=== PATIENT | female | born 1975 | race Caucasian/White ===

== ENCOUNTER 2016-08-31 18:03 | Emergency (ER) | payer OTHER ==
[~2016-08-31] VITALS: Ht 160 cm; Wt 46.9 kg
[~2016-08-31 18:03] MED LIST: ATENOLOL50 MG PO; BENTYL10 MG PO; CREON 241 CAPSULE PO; Colace PO; DEPAKOTE500 MG; DESYREL100 MG; DILANTIN100 MG PO; DILAUDID4 MG PO; DOCUSATE SODIU100 MG PO; Dilaudid PO; ELAVIL25 MG PO; FLOVENT 11120 INHALA IH; Feosol PO; GABAPENTIN300 MG PO; GABAPENTIN600 MG PO; Habitrol,Nicoderm CQ TD; IBUPROFEN IB100 MG PO; K-Dur PO; KEPPRA1000 MG PO; KEPPRA500 MG PO; KEPPRA750 MG PO; KLONOPIN1 MG PO; Keppra PO; KlonoPIN PO; Levaquin PO; MACRODANTIN100 MG PO; MORPHINE SULFAT15 M1 PO; MOTRIN IB200 MG; MOTRIN IB200 MG PO; NEURONTIN300 MG PO; NEURONTIN800 MG PO; NICOTINE PATCH1 EAC2 TD; NOHOMEMEDS; Neurontin PO; Nitrostat,NitroQuick SL; OMEPRAZOLE40 M1 PO; OXYCODONE HCL10 MG PO; OXYCODONE HCL5 MG PO; OxyCONTIN PO; PERCOCET 5/31 TABLET PO; PHENERGAN25 MG PO; PRILOSEC20 MG; PRILOSEC40 MG PO; PROMETHAZINE HC25 M1 PO; Protonix PO; Proventil,Ventolin H IH; SENNA8.6 MG PO; SOMA250 MG PO; SOMA350 M1 PO; SOMA350 MG PO; Soma PO; TENORMIN50 MG PO; Tenormin PO; VALIUM10 MG PO; VICODIN 5-3001 EACH PO; XANAX1 MG PO; ZOFRAN ODT8 MG PO; oxyCODONE PO
[2016-08-31] MEDS ORDERED: TRAMADOL HCL50 MG PO (19:05)
[2016-08-31] MEDS ORDERED: PEN-VEE K,VEET500 MG PO (19:05)
[2016-08-31] MEDS ORDERED: PERIDEX1 ML MM (19:05)
[2016-08-31 19:30] VITALS: BP 141/108
== END 2016-08-31 19:31 | disposition home or self-care (01) ==
LOC: RME 18:03 → EME 18:03 → RME 19:31
DX: K08.89 Other specified disorders of teeth and supporting structures (principal)
CPT/HCPCS: 99281; 99283; S0020

== ENCOUNTER 2017-02-22 18:23 | Emergency (ER) | payer OTHER ==
[~2017-02-22] VITALS: Ht 157.5 cm; Wt 52.8 kg
[~2017-02-22 18:23] MED LIST changes: +PEN-VEE K,VEET500 MG PO; +PERIDEX1 ML MM; +TRAMADOL HCL50 MG PO
[2017-02-22] MEDS ORDERED: PERCOCET 5/31 TABLET PO (20:48)
[2017-02-22 21:20] VITALS: BP 118/86
== END 2017-02-22 21:21 | disposition home or self-care (01) ==
LOC: EME 18:23 → EXP 18:23
DX: S83.92XA Sprain of unspecified site of left knee, initial encounter (principal); X58.XXXA Exposure to other specified factors, initial encounter; F17.200 Nicotine dependence, unspecified, uncomplicated
CPT/HCPCS: 73564; 99281; 99283

== ENCOUNTER 2017-04-14 12:06 | Emergency (ER) | payer OTHER ==
[~2017-04-14] VITALS: Ht 157.5 cm; Wt 53.3 kg
[~2017-04-14 12:06] MED LIST changes: +MEDROL DOSEPAK4 MG PO; +NORCO 5/3251 TABLET PO; +TYLENOL WITH C1 EACH PO
[2017-04-14 14:06] VITALS: BP 116/75
== END 2017-04-14 14:11 | disposition home or self-care (01) ==
LOC: EME 12:06
DX: M25.562 Pain in left knee (principal); M79.662 Pain in left lower leg; M79.672 Pain in left foot; F17.200 Nicotine dependence, unspecified, uncomplicated
CPT/HCPCS: 73564; 99281; 99284

== ENCOUNTER 2017-05-19 16:43 | Emergency (ER) | payer OTHER ==
[~2017-05-19] VITALS: Ht 157.5 cm; Wt 53.8 kg
[2017-05-19] MEDS ORDERED: PERCOCET 5/31 TABLET PO (17:45)
[2017-05-19 19:13] VITALS: BP 138/128
== END 2017-05-19 19:14 | disposition home or self-care (01) ==
LOC: EME 16:43
DX: M79.2 Neuralgia and neuritis, unspecified (principal); M79.641 Pain in right hand; G89.29 Other chronic pain; F17.200 Nicotine dependence, unspecified, uncomplicated
CPT/HCPCS: 99281; 99284; J8540

== ENCOUNTER 2017-06-05 18:25 | Emergency (ER) | payer OTHER ==
[~2017-06-05] VITALS: Ht 157.5 cm; Wt 55.2 kg
[2017-06-05] MEDS ORDERED: PERCOCET 5/31 TABLET PO (20:28)
[2017-06-05] MEDS ORDERED: SKELAXIN800 MG PO (20:28)
[2017-06-05] MEDS ORDERED: NEURONTIN100 MG PO (20:28)
[2017-06-05 20:49] VITALS: BP 145/87
== END 2017-06-05 20:50 | disposition home or self-care (01) ==
LOC: EME 18:25
DX: G62.9 Polyneuropathy, unspecified (principal); M79.641 Pain in right hand; G89.29 Other chronic pain; F17.200 Nicotine dependence, unspecified, uncomplicated; Z98.890 Other specified postprocedural states; Z88.5 Allergy status to narcotic agent; Z88.6 Allergy status to analgesic agent; Z88.1 Allergy status to other antibiotic agents; Z91.041 Radiographic dye allergy status
CPT/HCPCS: 99281; 99283

== ENCOUNTER 2017-08-27 15:13 | Emergency (ER) | payer OTHER ==
[~2017-08-27] VITALS: Ht 157.5 cm; Wt 54.9 kg
[~2017-08-27 15:13] MED LIST changes: +NEURONTIN100 MG PO; +SKELAXIN800 MG PO
[2017-08-27] MEDS ORDERED: PERCOCET 5/31 TABLET PO (18:53)
[2017-08-27 19:21] VITALS: BP 130/80
== END 2017-08-27 19:22 | disposition home or self-care (01) ==
LOC: EME 15:13
DX: M25.562 Pain in left knee (principal); I10 Essential (primary) hypertension; F17.200 Nicotine dependence, unspecified, uncomplicated; Z88.5 Allergy status to narcotic agent; Z88.1 Allergy status to other antibiotic agents; Z91.041 Radiographic dye allergy status
CPT/HCPCS: 73564; 99281; 99283

== ENCOUNTER 2017-09-18 17:07 | Emergency (ER) | payer OTHER ==
[~2017-09-18] VITALS: Ht 157.5 cm; Wt 54.4 kg
[2017-09-18 20:14] VITALS: BP 124/78
== END 2017-09-18 20:14 | disposition home or self-care (01) ==
LOC: EME 17:07
PROC: 2W3JX1Z Immobilization of Right Finger using Splint (ICD-10-PCS; principal; 2017-09-18)
DX: S63.612A Unspecified sprain of right middle finger, initial encounter (principal); Y08.89XA Assault by other specified means, initial encounter; Z91.041 Radiographic dye allergy status; Z88.5 Allergy status to narcotic agent
CPT/HCPCS: 73130; 99281; 99284

== ENCOUNTER 2017-11-11 03:08 | Emergency (ER) | payer OTHER ==
[~2017-11-11] VITALS: Ht 157.5 cm; Wt 54.2 kg
[2017-11-11] MEDS ORDERED: NORCO 5/3251 TABLET PO (07:13)
[2017-11-11 07:29] VITALS: BP 120/82
== END 2017-11-11 07:30 | disposition home or self-care (01) ==
LOC: EME 03:08
PROC: 2W39X1Z Immobilization of Left Upper Extremity using Splint (ICD-10-PCS; principal; 2017-11-11)
DX: S06.0X0A Concussion without loss of consciousness, initial encounter (principal); S52.502A Unspecified fracture of the lower end of left radius, initial encounter for closed fracture; S52.612A Displaced fracture of left ulna styloid process, initial encounter for closed fracture; Y04.8XXA Assault by other bodily force, initial encounter; Z88.5 Allergy status to narcotic agent; Z91.041 Radiographic dye allergy status
CPT/HCPCS: 70450; 73090; 99281; 99284

== ENCOUNTER 2017-12-04 23:20 | Emergency (ER) | payer OTHER ==
[~2017-12-04] VITALS: Ht 157.5 cm; Wt 51.3 kg
[2017-12-04 23:23] VITALS: BP 142/92
[2017-12-05] MEDS ORDERED: ULTRAM50 MG PO (02:03)
== END 2017-12-05 02:20 | disposition home or self-care (01) ==
LOC: EME → EDBD 23:20 → EME 12-05 02:20
DX: M25.532 Pain in left wrist (principal); S52.502D Unspecified fracture of the lower end of left radius, subsequent encounter for closed fracture with routine healing; W19.XXXD Unspecified fall, subsequent encounter; Z88.5 Allergy status to narcotic agent
CPT/HCPCS: 73110; 99281; 99283

== ENCOUNTER 2017-12-21 16:07 | Emergency (ER) | payer OTHER ==
[~2017-12-21] VITALS: Ht 157.5 cm; Wt 54.8 kg
[~2017-12-21 16:07] MED LIST changes: +ULTRAM50 MG PO
[2017-12-21 18:46] VITALS: BP 148/92
== END 2017-12-21 18:46 | disposition home or self-care (01) ==
LOC: EME 16:07
PROC: 2W3DX1Z Immobilization of Left Lower Arm using Splint (ICD-10-PCS; principal; 2017-12-21)
DX: Z47.89 Encounter for other orthopedic aftercare (principal); L29.9 Pruritus, unspecified; Z88.5 Allergy status to narcotic agent; Z91.041 Radiographic dye allergy status
CPT/HCPCS: 99281; 99284

== ENCOUNTER 2017-12-21 19:45 | Emergency (ER) | payer OTHER ==
[~2017-12-21] VITALS: Ht 157.5 cm; Wt 54.6 kg
[2017-12-21 23:32] LABS: HEMOGLOBIN 9.8 G/DL (11.9-15.5); MCH 26.1 PG (29.0-34.0); MCHC 31.6 G/DL (30.0-36.0); MCV 82.7 FL (83-99); PLATELET COUNT 304 K/uL (156-360); RBC DIS.WIDTH-CV 18.6 % (11.8-14.6); RBC DIS.WIDTH-SD 56.3 % (39-53); RED BLOOD COUNT 3.75 M/uL (3.80-5.20); WHITE BLOOD COUNT 9.6 K/uL (4.1-10.2)
[2017-12-21 23:42] LABS: CHLORIDE 109 mEq/L (99-109); POTASSIUM 3.5 mEq/L (3.7-5.4); SODIUM 140 mEq/L (136-147)
[2017-12-21 23:44] LABS: GLUCOSE 95 mg/dL (70-99)
[2017-12-21 23:47] LABS: SERUM ETHYL ALCOHOL < 10 mg/dL
[2017-12-21 23:48] LABS: CREATININE 0.7 mg/dL (0.6-1.3); GFR ESTIMATE (CALCULATED) > 59 mL/min/
[2017-12-21 23:50] LABS: UREA NITROGEN (BUN) 3 mg/dL (9-23)
[2017-12-21 23:51] LABS: ACETAMINOPHEN (TYLENOL) < 10 mcg/mL (10-30); SALICYLATE < 5.0 MG/DL (15-30)
[2017-12-22 00:03] LABS: AMPHETAMINE NEGATIVE (500 ng/mL); BARBITURATES NEGATIVE (200 ng/mL); BENZODIAZEPINES NEGATIVE (150 ng/mL); BUPRENORPHINE NEGATIVE (10 ng/mL); COCAINE PRESUMPTIVE POSITIVE (150 ng/mL); METHADONE NEGATIVE (200 ng/mL); METHAMPHETAMINE NEGATIVE (500 ng/mL); OPIATES (MORPHINE) NEGATIVE (100 ng/mL); OXYCODONE NEGATIVE (100 ng/mL); PHENCYCLIDINE NEGATIVE (25 ng/mL); PROPOXYPHENE NEGATIVE (300 ng/mL); THC CANNABINOIDS NEGATIVE (50 ng/mL); TRICYCLIC ANTIDEPRESSANTS PRESUMPTIVE POSITIVE (300 ng/mL)
[2017-12-22 13:33] VITALS: BP 140/71
== END 2017-12-22 13:39 | disposition home or self-care (01) ==
LOC: EME 19:45
PROVIDERS: Emergency Medicine
DX: F32.9 Major depressive disorder, single episode, unspecified (principal); R45.851 Suicidal ideations; F19.10 Other psychoactive substance abuse, uncomplicated; K21.9 Gastro-esophageal reflux disease without esophagitis; J43.9 Emphysema, unspecified; G43.909 Migraine, unspecified, not intractable, without status migrainosus; R56.9 Unspecified convulsions; F41.9 Anxiety disorder, unspecified; F17.200 Nicotine dependence, unspecified, uncomplicated; Z86.73 Personal history of transient ischemic attack (TIA), and cerebral infarction without residual deficits; Z90.49 Acquired absence of other specified parts of digestive tract; Z88.5 Allergy status to narcotic agent; Z91.041 Radiographic dye allergy status; Z88.1 Allergy status to other antibiotic agents
CPT/HCPCS: 80048; 84999; 85027; 90839; 99281; 99285; G0480